=== PATIENT | male | born 1935 | race Caucasian/White ===

== ENCOUNTER 2017-09-23 21:04 | Inpatient (IN) | payer MEDICARE, OTHER ==
[~2017-09-23] VITALS: Ht 188 cm; Wt 64.4 kg
[2017-09-23 21:15] VITALS: BP 137/63
[2017-09-23] MEDS ORDERED: MAGNESIUM HYDROXIDE 30 ML UDC PO PRN (21:30)
[2017-09-23] MEDS ORDERED: MAG HYDROX/AL HYDROX/SIMETH 30 ML UDC PO PRN (21:30)
[2017-09-23] MEDS ORDERED: TEMAZEPAM 7.5 MG CAPSULE ONE (23:10)
[2017-09-23] MEDS: TEMAZEPAM 7.5 MG CAPSULE PO PRN (23:17)
[2017-09-24 00:28] VITALS: BP 137/63
[2017-09-24] MEDS: LORAZEPAM 0.5 MG TABLET PO PRN (01:11)
[2017-09-24] MEDS ORDERED: BUPR100T6 PO (02:18)
[2017-09-24] MEDS ORDERED: PANT40TA4 PO (02:18)
[2017-09-24] MEDS ORDERED: DOCU-141 PO (02:18)
[2017-09-24] MEDS ORDERED: OXYC-128 PO (02:18)
[2017-09-24] MEDS ORDERED: DILT180C PO (02:18)
[2017-09-24] MEDS ORDERED: OXYB5TAB11 PO (02:18)
[2017-09-24] MEDS ORDERED: VIT1CAPS44 PO (02:18)
[2017-09-24] MEDS ORDERED: LISI-603 PO (02:18)
[2017-09-24] MEDS ORDERED: BUPR300T54 PO (02:18)
[2017-09-24] MEDS ORDERED: CALC-20 PO (02:18)
[2017-09-24] MEDS ORDERED: LORA10TA7 PO (02:18)
[2017-09-24] MEDS ORDERED: ATOR40TA PO (02:18)
[2017-09-24] MEDS ORDERED: ASPI-605 PO (02:18)
[2017-09-24] MEDS ORDERED: TAMS-12 PO (02:18)
[2017-09-24] MEDS ORDERED: FERR325T23 PO (02:18)
[2017-09-24] MEDS ORDERED: CHOL10002 PO (02:18)
[2017-09-24] MEDS ORDERED: SERT100T PO (02:18)
[2017-09-24 07:17] LABS: BASOPHILS % (AUTO) 0.7 % (0.0-2.0); EOSINOPHILS % (AUTO) 1.5 % (0.0-6.0); HEMATOCRIT 41 % (39-51); LYMPHOCYTES % (AUTO) 19.3 % (20.0-44.0); MEAN CORPUSCULAR HGB CONC 35 g/dl (31.0-36.0); MEAN CORPUSCULAR VOLUME 98 fL (80-96); MONOCYTES # (AUTO) 0.5 /CMM (0.1-1.30); MONOCYTES % (AUTO) 9.6 % (2.0-12.0); NEUTROPHILS # (AUTO) 3.7 /CMM (1.8-8.9); NEUTROPHILS % (AUTO) 68.9 % (43.0-81.0); PLATELET COUNT (AUTO) 165 /CMM (150-450); RDW COEFFICIENT OF VARIATION 13.9 (11.5-15.0); RED BLOOD CELL COUNT(AUTO) 4.14 MIL/uL (4.5-6.0); WHITE BLOOD COUNT (AUTO) 5.4 K/uL (4.3-11.0)
[2017-09-24 07:22] LABS: CHOLESTEROL 155 mg/dL (<200); HDL CHOLESTEROL 61 mg/dL (40-60); LDL 82 mg/dL (0-99); TRIGLYCERIDES 86 mg/dL (30-150)
[2017-09-24 07:25] LABS: ALANINE AMINOTRANSFERASE 23 U/L (12-78); ALBUMIN 3.3 g/dL (3.4-5.0); ALKALINE PHOSPHATASE 61 U/L (46-116); ASPARTATE AMINOTRANSFERASE 17 U/L (15-37); BILIRUBIN,TOTAL 0.5 mg/dL (0.2-1.0); CARBON DIOXIDE 28 mmol/L (21-32); CHLORIDE 105 mmol/L (98-107); GLUCOSE 95 mg/dL (74-106); SODIUM SERUM 139 mmol/L (136-145); TOTAL PROTEIN, SERUM 6.3 g/dL (6.4-8.2); UREA NITROGEN, BLOOD 21 mg/dL (7-18)
[2017-09-24 08:19] VITALS: BP 125/75
[2017-09-24] MEDS ORDERED: SERTRALINE HCL 50 MG TABLET PO SCH (09:00)
[2017-09-24] MEDS: FERROUS SULFATE (325 MG) 325 MG/TAB TABLET PO SCH (12:59)
[2017-09-24] MEDS: MULTIVITAMIN/LUTEIN/MINERALS 1 TAB PO SCH ×2 (13:00→17:38)
[2017-09-24] MEDS: OLANZAPINE 5 MG/TAB.RAPDIS PO SCH ×3 (13:00→17:39)
[2017-09-24] MEDS: CHOLECALCIFEROL 1,000 UNIT TABLET (VIT D3) PO SCH (13:00)
[2017-09-24] MEDS: DIVALPROEX SODIUM 250 MG TABLET.DR PO SCH ×2 (13:00→21:28)
[2017-09-24] MEDS: DOCUSATE SODIUM 100 MG CAPSULE PO SCH ×2 (13:00→17:38)
[2017-09-24] MEDS: ASPIRIN EC 81 MG TABLET.DR PO SCH (13:00)
[2017-09-24] MEDS: LORATADINE 10 MG TABLET PO SCH (13:00)
[2017-09-24] MEDS: OXYBUTYNIN CHLORIDE 5 MG TABLET PO SCH ×3 (13:00→17:38)
[2017-09-24] MEDS: DILTIAZEM HCL CD 180 MG PO SCH (13:01)
[2017-09-24] MEDS: LISINOPRIL (20MG) 20 MG TABLET PO SCH (13:02)
[2017-09-24] MEDS: oxyCODONE/APAP (5/325 MG) 1 UDTAB TABLET PO SCH ×2 (13:04→17:38)
[2017-09-24] MEDS: PANTOPRAZOLE 40 MG TABLET.DR PO SCH (13:04)
[2017-09-24 16:00] VITALS: BP 139/72
[2017-09-24 20:00] VITALS: BP 108/62
[2017-09-24] MEDS: ATORVASTATIN 40 MG TABLET PO SCH (21:28)
[2017-09-24] MEDS: TAMSULOSIN 0.4 MG CAP.SR.24H PO SCH (21:28)
[2017-09-24] MEDS: TEMAZEPAM 7.5 MG CAPSULE PO PRN (21:29)
[2017-09-25] MEDS: oxyCODONE/APAP (5/325 MG) 1 UDTAB TABLET PO SCH ×4 (00:24→17:29)
[2017-09-25 08:00] VITALS: BP 116/72
[2017-09-25] MEDS: SERTRALINE HCL 50 MG TABLET PO SCH (09:28)
[2017-09-25] MEDS: DOCUSATE SODIUM 100 MG CAPSULE PO SCH ×2 (09:28→16:50)
[2017-09-25] MEDS: MULTIVITAMIN/LUTEIN/MINERALS 1 TAB PO SCH ×2 (09:28→16:50)
[2017-09-25] MEDS: LISINOPRIL (20MG) 20 MG TABLET PO SCH (09:28)
[2017-09-25] MEDS: PANTOPRAZOLE 40 MG TABLET.DR PO SCH (09:28)
[2017-09-25] MEDS: LORATADINE 10 MG TABLET PO SCH (09:28)
[2017-09-25] MEDS: ASPIRIN EC 81 MG TABLET.DR PO SCH (09:28)
[2017-09-25] MEDS: OXYBUTYNIN CHLORIDE 5 MG TABLET PO SCH ×3 (09:28→16:50)
[2017-09-25] MEDS: FERROUS SULFATE (325 MG) 325 MG/TAB TABLET PO SCH (09:29)
[2017-09-25] MEDS: OLANZAPINE 5 MG/TAB.RAPDIS PO SCH ×3 (09:29→16:50)
[2017-09-25] MEDS: DILTIAZEM HCL CD 180 MG PO SCH (09:29)
[2017-09-25] MEDS: DIVALPROEX SODIUM 250 MG TABLET.DR PO SCH ×2 (09:29→20:47)
[2017-09-25] MEDS: CHOLECALCIFEROL 1,000 UNIT TABLET (VIT D3) PO SCH (09:29)
[2017-09-25] MEDS: MUPIROCIN OINT 2% 22 GM TUBE TP SCH ×2 (11:30→23:30)
[2017-09-25 16:00] VITALS: BP 134/84
[2017-09-25 19:59] VITALS: BP 156/68
[2017-09-25] MEDS: ATORVASTATIN 40 MG TABLET PO SCH (21:34)
[2017-09-25] MEDS: TAMSULOSIN 0.4 MG CAP.SR.24H PO SCH (21:35)
[2017-09-25] MEDS: TEMAZEPAM 7.5 MG CAPSULE PO PRN (21:36)
[2017-09-26] MEDS: oxyCODONE/APAP (5/325 MG) 1 UDTAB TABLET PO SCH ×4 (00:59→17:19)
[2017-09-26 08:00] VITALS: BP 97/51
[2017-09-26] MEDS: DILTIAZEM HCL CD 180 MG PO SCH (09:00)
[2017-09-26] MEDS: LISINOPRIL (20MG) 20 MG TABLET PO SCH (09:00)
[2017-09-26] MEDS: ASPIRIN EC 81 MG TABLET.DR PO SCH (09:21)
[2017-09-26] MEDS: SERTRALINE HCL 50 MG TABLET PO SCH (09:21)
[2017-09-26] MEDS: OXYBUTYNIN CHLORIDE 5 MG TABLET PO SCH ×3 (09:21→17:20)
[2017-09-26] MEDS: MULTIVITAMIN/LUTEIN/MINERALS 1 TAB PO SCH ×2 (09:21→17:19)
[2017-09-26] MEDS: PANTOPRAZOLE 40 MG TABLET.DR PO SCH (09:22)
[2017-09-26] MEDS: CHOLECALCIFEROL 1,000 UNIT TABLET (VIT D3) PO SCH (09:22)
[2017-09-26] MEDS: DOCUSATE SODIUM 100 MG CAPSULE PO SCH ×2 (09:22→17:20)
[2017-09-26] MEDS: DIVALPROEX SODIUM 250 MG TABLET.DR PO SCH ×2 (09:22→21:39)
[2017-09-26] MEDS: OLANZAPINE 5 MG/TAB.RAPDIS PO SCH ×3 (09:22→17:20)
[2017-09-26] MEDS: LORATADINE 10 MG TABLET PO SCH (09:22)
[2017-09-26] MEDS: FERROUS SULFATE (325 MG) 325 MG/TAB TABLET PO SCH (09:22)
[2017-09-26] MEDS: MUPIROCIN OINT 2% 22 GM TUBE TP SCH ×3 (11:30→23:30)
[2017-09-26] MEDS: LORAZEPAM 0.5 MG TABLET PO PRN (11:34)
[2017-09-26 16:00] VITALS: BP 142/89
[2017-09-26] MEDS: NEOMY SULF/BACITRAC ZN/POLY 15 GM TUBE TP SCH ×2 (18:30→21:40)
[2017-09-26] MEDS: ACETAMINOPHEN 325 MG TABLET PO PRN (19:49)
[2017-09-26] MEDS: ATORVASTATIN 40 MG TABLET PO SCH (21:38)
[2017-09-26] MEDS: TAMSULOSIN 0.4 MG CAP.SR.24H PO SCH (21:39)
[2017-09-27] MEDS: oxyCODONE/APAP (5/325 MG) 1 UDTAB TABLET PO SCH ×4 (00:15→17:48)
[2017-09-27] MEDS: LISINOPRIL (20MG) 20 MG TABLET PO SCH (09:00)
[2017-09-27] MEDS: OXYBUTYNIN CHLORIDE 5 MG TABLET PO SCH ×3 (09:20→17:48)
[2017-09-27] MEDS: LORATADINE 10 MG TABLET PO SCH (09:20)
[2017-09-27] MEDS: PANTOPRAZOLE 40 MG TABLET.DR PO SCH (09:20)
[2017-09-27] MEDS: FERROUS SULFATE (325 MG) 325 MG/TAB TABLET PO SCH (09:20)
[2017-09-27] MEDS: DILTIAZEM HCL CD 180 MG PO SCH (09:20)
[2017-09-27] MEDS: DOCUSATE SODIUM 100 MG CAPSULE PO SCH ×2 (09:20→17:48)
[2017-09-27] MEDS: DIVALPROEX SODIUM 250 MG TABLET.DR PO SCH ×2 (09:20→20:44)
[2017-09-27] MEDS: CHOLECALCIFEROL 1,000 UNIT TABLET (VIT D3) PO SCH (09:20)
[2017-09-27] MEDS: MULTIVITAMIN/LUTEIN/MINERALS 1 TAB PO SCH ×2 (09:20→17:48)
[2017-09-27] MEDS: ASPIRIN EC 81 MG TABLET.DR PO SCH (09:21)
[2017-09-27] MEDS: SERTRALINE HCL 50 MG TABLET PO SCH (09:21)
[2017-09-27] MEDS: OLANZAPINE 5 MG/TAB.RAPDIS PO SCH ×3 (09:21→17:48)
[2017-09-27] MEDS: NEOMY SULF/BACITRAC ZN/POLY 15 GM TUBE TP SCH (09:28)
[2017-09-27] MEDS: MUPIROCIN OINT 2% 22 GM TUBE TP SCH ×2 (11:30→23:35)
[2017-09-27 15:49] VITALS: BP 100/59
[2017-09-27 19:53] VITALS: BP 108/61
[2017-09-27] MEDS: LORAZEPAM 0.5 MG TABLET PO PRN (20:00)
[2017-09-27] MEDS: ATORVASTATIN 40 MG TABLET PO SCH (21:29)
[2017-09-27] MEDS: TAMSULOSIN 0.4 MG CAP.SR.24H PO SCH (21:30)
[2017-09-27] MEDS: TEMAZEPAM 7.5 MG CAPSULE PO PRN (21:54)
[2017-09-28] MEDS: oxyCODONE/APAP (5/325 MG) 1 UDTAB TABLET PO SCH ×4 (01:02→17:50)
[2017-09-28 08:00] VITALS: BP 116/76
[2017-09-28] MEDS: LISINOPRIL (20MG) 20 MG TABLET PO SCH (09:00)
[2017-09-28] MEDS: DILTIAZEM HCL CD 180 MG PO SCH (09:00)
[2017-09-28] MEDS: SERTRALINE HCL 50 MG TABLET PO SCH (10:25)
[2017-09-28] MEDS: DIVALPROEX SODIUM 250 MG TABLET.DR PO SCH ×3 (10:26→21:57)
[2017-09-28] MEDS: LORATADINE 10 MG TABLET PO SCH (10:26)
[2017-09-28] MEDS: DOCUSATE SODIUM 100 MG CAPSULE PO SCH ×2 (10:26→17:00)
[2017-09-28] MEDS: FERROUS SULFATE (325 MG) 325 MG/TAB TABLET PO SCH (10:26)
[2017-09-28] MEDS: CHOLECALCIFEROL 1,000 UNIT TABLET (VIT D3) PO SCH (10:26)
[2017-09-28] MEDS: MULTIVITAMIN/LUTEIN/MINERALS 1 TAB PO SCH ×2 (10:26→17:00)
[2017-09-28] MEDS: PANTOPRAZOLE 40 MG TABLET.DR PO SCH (10:26)
[2017-09-28] MEDS: OLANZAPINE 5 MG/TAB.RAPDIS PO SCH ×3 (10:27→17:00)
[2017-09-28] MEDS: ASPIRIN EC 81 MG TABLET.DR PO SCH (10:27)
[2017-09-28] MEDS: OXYBUTYNIN CHLORIDE 5 MG TABLET PO SCH ×3 (10:27→17:00)
[2017-09-28] MEDS: NEOMY SULF/BACITRAC ZN/POLY 15 GM TUBE TP SCH (10:28)
[2017-09-28] MEDS: MUPIROCIN OINT 2% 22 GM TUBE TP SCH ×2 (10:29→23:32)
[2017-09-28 16:00] VITALS: BP 120/76
[2017-09-28 20:03] VITALS: BP 115/71
[2017-09-28] MEDS: TAMSULOSIN 0.4 MG CAP.SR.24H PO SCH (21:58)
[2017-09-28] MEDS: ATORVASTATIN 40 MG TABLET PO SCH (21:58)
[2017-09-29 08:04] VITALS: BP 132/71
[2017-09-29] MEDS: DIVALPROEX SODIUM 250 MG TABLET.DR PO SCH ×3 (08:57→21:23)
[2017-09-29] MEDS: MULTIVITAMIN/LUTEIN/MINERALS 1 TAB PO SCH ×2 (08:57→16:54)
[2017-09-29] MEDS: FERROUS SULFATE (325 MG) 325 MG/TAB TABLET PO SCH (08:57)
[2017-09-29] MEDS: OXYBUTYNIN CHLORIDE 5 MG TABLET PO SCH ×3 (08:57→16:54)
[2017-09-29] MEDS: PANTOPRAZOLE 40 MG TABLET.DR PO SCH (08:57)
[2017-09-29] MEDS: SERTRALINE HCL 50 MG TABLET PO SCH (08:58)
[2017-09-29] MEDS: DOCUSATE SODIUM 100 MG CAPSULE PO SCH ×2 (08:58→16:54)
[2017-09-29] MEDS: DILTIAZEM HCL CD 180 MG PO SCH (08:58)
[2017-09-29] MEDS: OLANZAPINE 5 MG/TAB.RAPDIS PO SCH ×3 (08:58→16:54)
[2017-09-29] MEDS: LORATADINE 10 MG TABLET PO SCH (08:58)
[2017-09-29] MEDS: CHOLECALCIFEROL 1,000 UNIT TABLET (VIT D3) PO SCH (08:58)
[2017-09-29] MEDS: LISINOPRIL (20MG) 20 MG TABLET PO SCH (08:59)
[2017-09-29] MEDS: NEOMY SULF/BACITRAC ZN/POLY 15 GM TUBE TP SCH (09:00)
[2017-09-29] MEDS: ASPIRIN EC 81 MG TABLET.DR PO SCH (09:05)
[2017-09-29] MEDS: MUPIROCIN OINT 2% 22 GM TUBE TP SCH ×2 (12:28→23:36)
[2017-09-29] MEDS: ACETAMINOPHEN 325 MG TABLET PO PRN (14:44)
[2017-09-29 15:49] VITALS: BP 131/59
[2017-09-29 20:00] VITALS: BP 129/54
[2017-09-29] MEDS: TAMSULOSIN 0.4 MG CAP.SR.24H PO SCH (21:22)
[2017-09-29] MEDS: ATORVASTATIN 40 MG TABLET PO SCH (21:22)
[2017-09-29] MEDS: TEMAZEPAM 7.5 MG CAPSULE PO PRN (23:38)
[2017-09-30] MEDS: LORAZEPAM 0.5 MG TABLET PO PRN (02:33)
[2017-09-30] MEDS: oxyCODONE/APAP (5/325 MG) 1 UDTAB TABLET PO PRN ×2 (03:18→13:11)
[2017-09-30 08:00] VITALS: BP 103/54
[2017-09-30] MEDS: OXYBUTYNIN CHLORIDE 5 MG TABLET PO SCH ×3 (08:34→16:53)
[2017-09-30] MEDS: SERTRALINE HCL 50 MG TABLET PO SCH (08:34)
[2017-09-30] MEDS: OLANZAPINE 5 MG/TAB.RAPDIS PO SCH ×3 (08:35→16:53)
[2017-09-30] MEDS: FERROUS SULFATE (325 MG) 325 MG/TAB TABLET PO SCH (08:35)
[2017-09-30] MEDS: DIVALPROEX SODIUM 250 MG TABLET.DR PO SCH ×3 (08:35→21:23)
[2017-09-30] MEDS: LORATADINE 10 MG TABLET PO SCH (08:35)
[2017-09-30] MEDS: MULTIVITAMIN/LUTEIN/MINERALS 1 TAB PO SCH ×2 (08:35→16:53)
[2017-09-30] MEDS: ASPIRIN EC 81 MG TABLET.DR PO SCH (08:35)
[2017-09-30] MEDS: DOCUSATE SODIUM 100 MG CAPSULE PO SCH ×2 (08:35→16:53)
[2017-09-30] MEDS: CHOLECALCIFEROL 1,000 UNIT TABLET (VIT D3) PO SCH (08:35)
[2017-09-30] MEDS: DILTIAZEM HCL CD 180 MG PO SCH (08:35)
[2017-09-30] MEDS: PANTOPRAZOLE 40 MG TABLET.DR PO SCH (08:35)
[2017-09-30] MEDS: LISINOPRIL (20MG) 20 MG TABLET PO SCH (08:36)
[2017-09-30] MEDS: NEOMY SULF/BACITRAC ZN/POLY 15 GM TUBE TP SCH (08:42)
[2017-09-30] MEDS: MUPIROCIN OINT 2% 22 GM TUBE TP SCH (13:09)
[2017-09-30 16:49] VITALS: BP 113/62
[2017-09-30 20:00] VITALS: BP 123/69
[2017-09-30] MEDS: ATORVASTATIN 40 MG TABLET PO SCH (21:23)
[2017-09-30] MEDS: TAMSULOSIN 0.4 MG CAP.SR.24H PO SCH (21:24)
[2017-09-30] MEDS: TEMAZEPAM 7.5 MG CAPSULE PO PRN (21:26)
[2017-10-01] MEDS: MUPIROCIN OINT 2% 22 GM TUBE TP SCH ×3 (00:02→23:36)
[2017-10-01 07:59] VITALS: BP 136/89
[2017-10-01] MEDS: FERROUS SULFATE (325 MG) 325 MG/TAB TABLET PO SCH (08:48)
[2017-10-01] MEDS: OLANZAPINE 5 MG/TAB.RAPDIS PO SCH ×3 (08:49→16:23)
[2017-10-01] MEDS: CHOLECALCIFEROL 1,000 UNIT TABLET (VIT D3) PO SCH (08:49)
[2017-10-01] MEDS: LISINOPRIL (20MG) 20 MG TABLET PO SCH (08:49)
[2017-10-01] MEDS: DOCUSATE SODIUM 100 MG CAPSULE PO SCH ×2 (08:50→16:23)
[2017-10-01] MEDS: DIVALPROEX SODIUM 250 MG TABLET.DR PO SCH ×3 (08:50→21:44)
[2017-10-01] MEDS: LORATADINE 10 MG TABLET PO SCH (08:50)
[2017-10-01] MEDS: DILTIAZEM HCL CD 180 MG PO SCH (08:50)
[2017-10-01] MEDS: ASPIRIN EC 81 MG TABLET.DR PO SCH (08:50)
[2017-10-01] MEDS: OXYBUTYNIN CHLORIDE 5 MG TABLET PO SCH ×3 (08:50→16:26)
[2017-10-01] MEDS: NEOMY SULF/BACITRAC ZN/POLY 15 GM TUBE TP SCH (08:51)
[2017-10-01] MEDS: MULTIVITAMIN/LUTEIN/MINERALS 1 TAB PO SCH ×2 (08:53→16:23)
[2017-10-01] MEDS: SERTRALINE HCL 50 MG TABLET PO SCH (08:53)
[2017-10-01] MEDS: PANTOPRAZOLE 40 MG TABLET.DR PO SCH (08:53)
[2017-10-01 16:15] VITALS: BP 134/88
[2017-10-01 20:00] VITALS: BP 105/64
[2017-10-01] MEDS: TAMSULOSIN 0.4 MG CAP.SR.24H PO SCH (21:44)
[2017-10-01] MEDS: ATORVASTATIN 40 MG TABLET PO SCH (21:44)
[2017-10-01] MEDS: TEMAZEPAM 7.5 MG CAPSULE PO PRN (21:45)
[2017-10-01] MEDS: oxyCODONE/APAP (5/325 MG) 1 UDTAB TABLET PO PRN (23:36)
[2017-10-02 08:00] VITALS: BP 149/82
[2017-10-02] MEDS: LISINOPRIL (20MG) 20 MG TABLET PO SCH (08:18)
[2017-10-02] MEDS: DIVALPROEX SODIUM 250 MG TABLET.DR PO SCH ×3 (08:18→21:47)
[2017-10-02] MEDS: MULTIVITAMIN/LUTEIN/MINERALS 1 TAB PO SCH ×2 (08:18→16:00)
[2017-10-02] MEDS: ASPIRIN EC 81 MG TABLET.DR PO SCH (08:18)
[2017-10-02] MEDS: SERTRALINE HCL 50 MG TABLET PO SCH (08:19)
[2017-10-02] MEDS: DOCUSATE SODIUM 100 MG CAPSULE PO SCH ×2 (08:19→16:01)
[2017-10-02] MEDS: OXYBUTYNIN CHLORIDE 5 MG TABLET PO SCH ×3 (08:19→16:00)
[2017-10-02] MEDS: LORATADINE 10 MG TABLET PO SCH (08:19)
[2017-10-02] MEDS: CHOLECALCIFEROL 1,000 UNIT TABLET (VIT D3) PO SCH (08:19)
[2017-10-02] MEDS: DILTIAZEM HCL CD 180 MG PO SCH (08:19)
[2017-10-02] MEDS: OLANZAPINE 5 MG/TAB.RAPDIS PO SCH ×3 (08:19→16:00)
[2017-10-02] MEDS: FERROUS SULFATE (325 MG) 325 MG/TAB TABLET PO SCH (08:20)
[2017-10-02] MEDS: PANTOPRAZOLE 40 MG TABLET.DR PO SCH (08:20)
[2017-10-02] MEDS: NEOMY SULF/BACITRAC ZN/POLY 15 GM TUBE TP SCH (08:23)
[2017-10-02] MEDS: oxyCODONE/APAP (5/325 MG) 1 UDTAB TABLET PO PRN (10:48)
[2017-10-02] MEDS: MUPIROCIN OINT 2% 22 GM TUBE TP SCH ×2 (12:02→23:30)
[2017-10-02] MEDS: LORAZEPAM 0.5 MG TABLET PO PRN (16:00)
[2017-10-02 16:37] VITALS: BP 133/97
[2017-10-02 20:08] VITALS: BP 135/75
[2017-10-02] MEDS: TAMSULOSIN 0.4 MG CAP.SR.24H PO SCH (21:26)
[2017-10-02] MEDS: ATORVASTATIN 40 MG TABLET PO SCH (21:26)
[2017-10-02] MEDS: TEMAZEPAM 7.5 MG CAPSULE PO PRN (22:32)
[2017-10-03 08:00] VITALS: BP 125/79
[2017-10-03] MEDS: OLANZAPINE 5 MG/TAB.RAPDIS PO SCH ×3 (08:21→16:28)
[2017-10-03] MEDS: LORATADINE 10 MG TABLET PO SCH (08:21)
[2017-10-03] MEDS: DILTIAZEM HCL CD 180 MG PO SCH (08:21)
[2017-10-03] MEDS: ASPIRIN EC 81 MG TABLET.DR PO SCH (08:21)
[2017-10-03] MEDS: DIVALPROEX SODIUM 250 MG TABLET.DR PO SCH ×3 (08:21→21:29)
[2017-10-03] MEDS: PANTOPRAZOLE 40 MG TABLET.DR PO SCH (08:22)
[2017-10-03] MEDS: OXYBUTYNIN CHLORIDE 5 MG TABLET PO SCH ×3 (08:22→16:28)
[2017-10-03] MEDS: DOCUSATE SODIUM 100 MG CAPSULE PO SCH ×2 (08:22→17:00)
[2017-10-03] MEDS: FERROUS SULFATE (325 MG) 325 MG/TAB TABLET PO SCH (08:22)
[2017-10-03] MEDS: LISINOPRIL (20MG) 20 MG TABLET PO SCH (08:22)
[2017-10-03] MEDS: MULTIVITAMIN/LUTEIN/MINERALS 1 TAB PO SCH ×2 (08:50→16:28)
[2017-10-03] MEDS: SERTRALINE HCL 50 MG TABLET PO SCH (08:50)
[2017-10-03] MEDS: NEOMY SULF/BACITRAC ZN/POLY 15 GM TUBE TP SCH (09:24)
[2017-10-03] MEDS: CHOLECALCIFEROL 1,000 UNIT TABLET (VIT D3) PO SCH (09:25)
[2017-10-03] MEDS: MUPIROCIN OINT 2% 22 GM TUBE TP SCH (12:55)
[2017-10-03 16:00] VITALS: BP 131/71
[2017-10-03 19:44] VITALS: BP 103/65
[2017-10-03] MEDS: ATORVASTATIN 40 MG TABLET PO SCH (21:29)
[2017-10-03] MEDS: TAMSULOSIN 0.4 MG CAP.SR.24H PO SCH (21:30)
[2017-10-03] MEDS: TEMAZEPAM 7.5 MG CAPSULE PO PRN (21:30)
[2017-10-03] MEDS: oxyCODONE/APAP (5/325 MG) 1 UDTAB TABLET PO PRN (22:43)
[2017-10-04] MEDS: ACETAMINOPHEN 325 MG TABLET PO PRN (02:21)
[2017-10-04] MEDS: LORAZEPAM 0.5 MG TABLET PO PRN (02:21)
[2017-10-04 08:00] VITALS: BP 129/74
[2017-10-04] MEDS: MULTIVITAMIN/LUTEIN/MINERALS 1 TAB PO SCH ×2 (09:13→17:11)
[2017-10-04] MEDS: DOCUSATE SODIUM 100 MG CAPSULE PO SCH ×2 (09:14→17:10)
[2017-10-04] MEDS: SERTRALINE HCL 50 MG TABLET PO SCH (09:14)
[2017-10-04] MEDS: OLANZAPINE 5 MG/TAB.RAPDIS PO SCH ×3 (09:14→17:10)
[2017-10-04] MEDS: DIVALPROEX SODIUM 250 MG TABLET.DR PO SCH ×3 (09:15→21:09)
[2017-10-04] MEDS: ASPIRIN EC 81 MG TABLET.DR PO SCH (09:15)
[2017-10-04] MEDS: CHOLECALCIFEROL 1,000 UNIT TABLET (VIT D3) PO SCH (09:15)
[2017-10-04] MEDS: LORATADINE 10 MG TABLET PO SCH (09:15)
[2017-10-04] MEDS: FERROUS SULFATE (325 MG) 325 MG/TAB TABLET PO SCH (09:16)
[2017-10-04] MEDS: PANTOPRAZOLE 40 MG TABLET.DR PO SCH (09:16)
[2017-10-04] MEDS: OXYBUTYNIN CHLORIDE 5 MG TABLET PO SCH ×3 (09:16→17:11)
[2017-10-04] MEDS: LISINOPRIL (20MG) 20 MG TABLET PO SCH (09:16)
[2017-10-04] MEDS: DILTIAZEM HCL CD 180 MG PO SCH (09:16)
[2017-10-04] MEDS: NEOMY SULF/BACITRAC ZN/POLY 15 GM TUBE TP SCH (09:17)
[2017-10-04] MEDS: oxyCODONE/APAP (5/325 MG) 1 UDTAB TABLET PO PRN (12:00)
[2017-10-04 16:00] VITALS: BP 132/75
[2017-10-04 20:20] VITALS: BP 114/74
[2017-10-04] MEDS: ATORVASTATIN 40 MG TABLET PO SCH (21:09)
[2017-10-04] MEDS: TAMSULOSIN 0.4 MG CAP.SR.24H PO SCH (21:10)
[2017-10-04] MEDS: TEMAZEPAM 7.5 MG CAPSULE PO PRN (22:16)
[2017-10-05] MEDS: oxyCODONE/APAP (5/325 MG) 1 UDTAB TABLET PO PRN (00:44)
[2017-10-05 08:00] VITALS: BP 113/68
[2017-10-05] MEDS: MULTIVITAMIN/LUTEIN/MINERALS 1 TAB PO SCH (08:46)
[2017-10-05] MEDS: ASPIRIN EC 81 MG TABLET.DR PO SCH (08:46)
[2017-10-05] MEDS: OXYBUTYNIN CHLORIDE 5 MG TABLET PO SCH ×2 (08:46→13:17)
[2017-10-05] MEDS: DIVALPROEX SODIUM 250 MG TABLET.DR PO SCH (08:46)
[2017-10-05] MEDS: OLANZAPINE 5 MG/TAB.RAPDIS PO SCH ×2 (08:46→13:17)
[2017-10-05] MEDS: SERTRALINE HCL 50 MG TABLET PO SCH (08:46)
[2017-10-05] MEDS: FERROUS SULFATE (325 MG) 325 MG/TAB TABLET PO SCH (08:46)
[2017-10-05] MEDS: CHOLECALCIFEROL 1,000 UNIT TABLET (VIT D3) PO SCH (08:46)
[2017-10-05 08:47] VITALS: BP 113/88
[2017-10-05] MEDS: DOCUSATE SODIUM 100 MG CAPSULE PO SCH (08:47)
[2017-10-05] MEDS: LISINOPRIL (20MG) 20 MG TABLET PO SCH (08:47)
[2017-10-05] MEDS: DILTIAZEM HCL CD 180 MG PO SCH (08:47)
[2017-10-05] MEDS: PANTOPRAZOLE 40 MG TABLET.DR PO SCH (08:47)
[2017-10-05] MEDS: LORATADINE 10 MG TABLET PO SCH (08:47)
[2017-10-05] MEDS: NEOMY SULF/BACITRAC ZN/POLY 15 GM TUBE TP SCH (09:00)
== END 2017-10-05 13:40 | DRG 885 ==
LOC: GPS 21:04 → GPSOV2 09-26 06:46 → GPS 09-27 11:15
PROVIDERS: ADMIT Psychiatry & Neurology Psychiatry; ATTEND Psychiatry & Neurology Psychiatry
DX: F39 Unspecified mood [affective] disorder (principal); F03.91 Unspecified dementia, unspecified severity, with behavioral disturbance; E44.1 Mild protein-calorie malnutrition; I48.2 Chronic atrial fibrillation; F29 Unspecified psychosis not due to a substance or known physiological condition; E78.5 Hyperlipidemia, unspecified; I10 Essential (primary) hypertension; F32.9 Major depressive disorder, single episode, unspecified; Z79.82 Long term (current) use of aspirin; Z79.899 Other long term (current) drug therapy; N40.0 Benign prostatic hyperplasia without lower urinary tract symptoms; S40.022A Contusion of left upper arm, initial encounter; S40.021A Contusion of right upper arm, initial encounter; X58.XXXA Exposure to other specified factors, initial encounter; Y92.129 Unspecified place in nursing home as the place of occurrence of the external cause; S61.411A Laceration without foreign body of right hand, initial encounter; S41.111A Laceration without foreign body of right upper arm, initial encounter; S00.83XA Contusion of other part of head, initial encounter; Z73.6 Limitation of activities due to disability; F10.21 Alcohol dependence, in remission; G89.29 Other chronic pain
CPT/HCPCS: 36415; 80053-TC; 80061-TC; 80164-TC; 85025-TC; 87081-TC; A6402; A6403; Z7610

== ENCOUNTER 2017-10-10 17:38 | Inpatient (IN) | payer MEDICARE, OTHER ==
[~2017-10-10] VITALS: Ht 177.8 cm; Wt 66.2 kg
[~2017-10-10 17:38] MED LIST: ASPI-605 PO; ATOR40TA PO; BUPR300T54 PO; CHOL10002 PO; DILT180C PO; DOCU-141 PO; FERR325T23 PO; LISI-603 PO; LORA10TA7 PO; OXYB5TAB11 PO; OXYC-128 PO; PANT40TA4 PO; SERT100T PO; TAMS-12 PO; VIT1CAPS44 PO
--- NOTE | 2017-10-10 17:55 | NUR ---
PT BIB PA FROM SNF WITH A C/O INCREASING AGGITATION. PT APPEARS CALM AND COOPERATIVE. PT IS AMBULATORY WITH A STEADY GAIT. PT C/O FEELING COLD. PT REC'D 2 WARM BLANKETS.
[2017-10-10 18:10] LABS: BASOPHILS % (AUTO) 0.6 % (0.0-2.0); EOSINOPHILS % (AUTO) 0.6 % (0.0-6.0); HEMATOCRIT 40 % (39-51); HEMOGLOBIN 13.9 g/dL (13.5-17.5); LYMPHOCYTES # (AUTO) 1.2 /CMM (0.8-4.8); LYMPHOCYTES % (AUTO) 17.9 % (20.0-44.0); MEAN CORPUSCULAR HGB CONC 35 g/dl (31.0-36.0); MEAN CORPUSCULAR VOLUME 97 fL (80-96); MONOCYTES # (AUTO) 0.7 /CMM (0.1-1.30); MONOCYTES % (AUTO) 9.8 % (2.0-12.0); NEUTROPHILS # (AUTO) 4.9 /CMM (1.8-8.9); NEUTROPHILS % (AUTO) 71.1 % (43.0-81.0); PLATELET COUNT (AUTO) 224 /CMM (150-450); RDW COEFFICIENT OF VARIATION 12.6 (11.5-15.0); RED BLOOD CELL COUNT(AUTO) 4.13 MIL/uL (4.5-6.0); WHITE BLOOD COUNT (AUTO) 6.8 K/uL (4.3-11.0)
[2017-10-10 18:21] LABS: CALCIUM, SERUM 8.6 mg/dL (8.5-10.1); CARBON DIOXIDE 27 mmol/L (21-32); CHLORIDE 102 mmol/L (98-107); CREATININE 1.1 mg/dL (0.6-1.3); GLUCOSE 95 mg/dL (74-106); POTASSIUM 4.4 mmol/L (3.5-5.1); SODIUM SERUM 137 mmol/L (136-145); UREA NITROGEN, BLOOD 26 mg/dL (7-18)
[2017-10-10 18:23] LABS: INR 1.02 (0.85-1.15)
[2017-10-10 18:25] LABS: SALICYLATE 1.8 mg/dL (2.8-20.0)
[2017-10-10 18:27] LABS: ALANINE AMINOTRANSFERASE 19 U/L (12-78); ALBUMIN 3.4 g/dL (3.4-5.0); ALKALINE PHOSPHATASE 104 U/L (46-116); ASPARTATE AMINOTRANSFERASE 16 U/L (15-37); BILIRUBIN,DIRECT 0.1 mg/dL (0.0-0.2); BILIRUBIN,TOTAL 0.3 mg/dL (0.2-1.0); TOTAL PROTEIN, SERUM 6.7 g/dL (6.4-8.2)
[2017-10-10] MEDS ORDERED: TEMA7.5C12 PO (18:38)
[2017-10-10] MEDS ORDERED: MAG30ORA PO (18:38)
[2017-10-10] MEDS ORDERED: IBUP-2269 PO (18:38)
[2017-10-10] MEDS ORDERED: LORA0.5T PO (18:38)
[2017-10-10] MEDS ORDERED: MELA3TAB PO (18:38)
[2017-10-10] MEDS ORDERED: OLAN5TAB6 PO (18:38)
[2017-10-10] MEDS ORDERED: SERT25TA5 PO (18:38)
[2017-10-10] MEDS ORDERED: DIVA250T PO (18:38)
--- NOTE | 2017-10-10 18:50 | NUR ---
PT REC'D AN EGG SANDWICH, JELLO AND JUICE. PT IS TOLERATING PO WELL.
--- NOTE | 2017-10-10 19:00 | NUR ---
TOVA MOHAMUD, IS AT THE BEDSIDE.
--- NOTE | 2017-10-10 19:34 | NUR ---
PT WALKED TO THE ER BAY DOORS AND WAS REDIRECTED BACK TO BED #5. PT IS NOW ON A HOLD. DR. WALTERS IS ACCEPTING MD. (PSYCH). PT WAS MOVED TO BED #16 TO BE CLOSER TO THE NURSES' STATION. PT IS WATCHING TV.
--- NOTE | 2017-10-10 19:40 | NUR ---
PT IS ASSIGNED TO GPS #: [id number], PT IS DIAGNOSED WITH PSYCHOSIS NOS, AND DR WALTERS IS THE ACCEPTING PSYCHIATRIST.
[2017-10-10 19:45] LABS: TROPONIN I < 0.017 ng/mL (0.00-0.056)
--- NOTE | 2017-10-10 19:55 | NUR ---
REPORT GIVEN TO VIKTOR KHAN. PT TO GO TO [facility] AT 2005
[2017-10-10 20:28] VITALS: BP 154/98
--- NOTE | 2017-10-10 20:48 | NUR ---
ADMITTED A 82 Y/O Y/O MALE FROM [facility], ON 5150 HOLD GD AND DTO, PER HOLD, PATIENT IS INCREASED AGITATION AND CONFUSION. PATIENT ADMITTING DIAGNOSIS IS PSYCHOSIS AND MEDICAL HX. OF DEMENTIA, HTN, AFIB, BPH AND CHRONIC LOWER BACK PAIN. UPON FACE TO FACE EVALUATION, PATIENT APPEARED ALERT AND ORIENTED X 1, CONFUSED, CALM, COOPERATIVE, DISORGANIZED, UNKEMPT, WANDERS, REDIRECTABLE. PATIENT REFUSED TO SIGN PAPER WORKS, PATIENT HAS NO SOB, NO ACUTE DISTRESS, BREATHING EVEN AND UNLABORED, NO S/S OF PAIN AND DISCOMFORT, DENIES SI/HI, ABLE TO WALK WITH STEADY GAIT, PATIENT ATE SNACKS. HEAD TO TOE ASSESSMENT DONE, PICTURE DONE, WOUND CONSULT TRIGGERED, BELONGINGS INSPECTED FOR CONTRABAND CHECKING AND PLACED TO LOCKED CABINET. PATIENT IS UNDER THE CARE OF DR. WALTERS. NOTIFIED DR. NANCE TO RECONCILE MEDICATION OF THE ADMISSION AND NOTIFIED SPOUSE OF THE ADMISSION. KEPT CLEAN, DRY AND COMFORTABLE, WILL CONTINUE TO MONITOR [id number] FOR SAFETY.
[2017-10-10 21:42] VITALS: BP 154/98
[2017-10-10] MEDS ORDERED: ACETAMINOPHEN 325 MG TABLET PO PRN (22:00)
[2017-10-10] MEDS ORDERED: MAG HYDROX/AL HYDROX/SIMETH 30 ML UDC PO PRN ×2 (22:00→22:30)
[2017-10-10] MEDS ORDERED: MAGNESIUM HYDROXIDE 30 ML UDC PO PRN (22:00)
[2017-10-10] MEDS ORDERED: LORAZEPAM 0.5 MG TABLET PO PRN (22:00)
[2017-10-10] MEDS: DILTIAZEM HCL CD 180 MG PO SCH (23:26)
[2017-10-10] MEDS: LISINOPRIL (20MG) 20 MG TABLET PO SCH (23:26)
[2017-10-11 08:19] VITALS: BP 118/85
[2017-10-11] MEDS: LISINOPRIL (20MG) 20 MG TABLET PO SCH (08:58)
[2017-10-11] MEDS: CHOLECALCIFEROL 1,000 UNIT TABLET (VIT D3) PO SCH (08:59)
[2017-10-11] MEDS: DILTIAZEM HCL CD 180 MG PO SCH (08:59)
[2017-10-11] MEDS: ASPIRIN EC 81 MG TABLET.DR PO SCH (08:59)
[2017-10-11] MEDS: DOCUSATE SODIUM 100 MG CAPSULE PO SCH ×2 (08:59→16:46)
[2017-10-11] MEDS: FERROUS SULFATE (325 MG) 325 MG/TAB TABLET PO SCH (08:59)
[2017-10-11] MEDS: DIVALPROEX SODIUM 250 MG TABLET.DR PO SCH ×4 (08:59→21:17)
[2017-10-11] MEDS: OXYBUTYNIN CHLORIDE 5 MG TABLET PO SCH ×3 (09:00→16:46)
[2017-10-11] MEDS: LORATADINE 10 MG TABLET PO SCH (09:00)
[2017-10-11] MEDS: PANTOPRAZOLE 40 MG TABLET.DR PO SCH (09:00)
--- NOTE | 2017-10-11 09:34 | NUR ---
INITIAL DISCHARGE NOTE: Pt will return to [facility] Address: [address], [place] [address] . SW will help form a safe and proper discharge in collaboration with .
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
--- NOTE | 2017-10-11 13:37 | NUR ---
PT RETURNING TO UNIT WITHIN 30 DAYS OF INITIAL DISCHARGE: SW has reviewed this patients psychosocial dated 09/26/17 and can attest to the accuracy of the information therein. There have been no changes since his last assessment. Pt. still appears confused, disorganized, and agitated. Pts judgement and insight are poor. Pt denies suicidal/homicidal ideations and denies visual/auditory hallucinations. Pt does not appear to be responding to internal stimuli. Pt was agitated and stated he did not want to return to [facility] Address: [address], [place] [address] .
[2017-10-11] MEDS: BACITRACIN/POLYMYXIN B 15 GM TUBE TP SCH (13:47)
--- NOTE | 2017-10-11 13:55 | NUR ---
SW contacted Pts Bess [phone] to discuss pts current psychiatric hospitalization. Pts stated that she would like pt to return to [facility] Address: [address], [place] [address]
[2017-10-11 16:00] VITALS: BP 110/60
[2017-10-11] MEDS: OLANZAPINE 2.5 MG TABLET PO SCH ×2 (16:46→21:17)
[2017-10-11 17:41] LABS: CHOLESTEROL 161 mg/dL (<200); HDL CHOLESTEROL 50 mg/dL (40-60); LDL 93 mg/dL (0-99); TRIGLYCERIDES 133 mg/dL (30-150)
[2017-10-11 20:12] VITALS: BP 137/72
[2017-10-11] MEDS: TAMSULOSIN 0.4 MG CAP.SR.24H PO SCH (21:17)
[2017-10-11] MEDS: ATORVASTATIN 40 MG TABLET PO SCH (21:17)
--- NOTE | 2017-10-11 21:30 | NUR ---
GPS RN NOTES: PATIENT'S MEDICATION DEPAKOTE 250 MG PO ADMINISTERED AT 2116 UNDONE ON THE EMAR AND ADMINISTERED UNDER THE NEW ORDER DONE BY DR. WALTERS. SAID SITUATION IS BASED ON THE REASON THAT DEPAKOTE [address] WALTRES FOR MOOD AND BEHAVIOR. AND THAT THE PREVIOUS ORDER WAS DONE BY DR. LEE ANN SCHULTE. THIS WHOLE CHANGED BEING CONFERRED WITH THE HEEL PADDER-ASHANTI.
[2017-10-12 08:00] VITALS: BP 101/66
[2017-10-12] MEDS: OXYBUTYNIN CHLORIDE 5 MG TABLET PO SCH ×3 (08:42→17:05)
[2017-10-12] MEDS: DOCUSATE SODIUM 100 MG CAPSULE PO SCH ×2 (08:44→17:07)
[2017-10-12] MEDS: PANTOPRAZOLE 40 MG TABLET.DR PO SCH (08:44)
[2017-10-12] MEDS: DIVALPROEX SODIUM 250 MG TABLET.DR PO SCH ×3 (08:44→21:37)
[2017-10-12] MEDS: CHOLECALCIFEROL 1,000 UNIT TABLET (VIT D3) PO SCH (08:45)
[2017-10-12] MEDS: FERROUS SULFATE (325 MG) 325 MG/TAB TABLET PO SCH (08:45)
[2017-10-12] MEDS: LORATADINE 10 MG TABLET PO SCH (08:45)
[2017-10-12] MEDS: OLANZAPINE 2.5 MG TABLET PO SCH ×3 (08:45→21:46)
[2017-10-12] MEDS: ASPIRIN EC 81 MG TABLET.DR PO SCH (08:45)
[2017-10-12] MEDS: BACITRACIN/POLYMYXIN B 15 GM TUBE TP SCH (09:04)
[2017-10-12] MEDS: SERTRALINE HCL 25 MG TABLET PO SCH (09:10)
[2017-10-12] MEDS: DILTIAZEM HCL CD 180 MG PO SCH (11:54)
[2017-10-12] MEDS: LISINOPRIL (20MG) 20 MG TABLET PO SCH (14:43)
[2017-10-12 16:00] VITALS: BP 108/70
[2017-10-12 20:22] VITALS: BP 114/59
[2017-10-12] MEDS: TEMAZEPAM 7.5 MG CAPSULE PO PRN (21:37)
[2017-10-12] MEDS: TAMSULOSIN 0.4 MG CAP.SR.24H PO SCH (21:46)
[2017-10-12] MEDS: ATORVASTATIN 40 MG TABLET PO SCH (22:04)
[2017-10-13 08:00] VITALS: BP 132/70
[2017-10-13] MEDS: LISINOPRIL (20MG) 20 MG TABLET PO SCH (09:06)
[2017-10-13] MEDS: DOCUSATE SODIUM 100 MG CAPSULE PO SCH ×2 (09:06→16:43)
[2017-10-13] MEDS: DIVALPROEX SODIUM 250 MG TABLET.DR PO SCH ×3 (09:07→20:11)
[2017-10-13] MEDS: OLANZAPINE 2.5 MG TABLET PO SCH ×3 (09:07→21:22)
[2017-10-13] MEDS: SERTRALINE HCL 25 MG TABLET PO SCH (09:08)
[2017-10-13] MEDS: CHOLECALCIFEROL 1,000 UNIT TABLET (VIT D3) PO SCH (09:08)
[2017-10-13] MEDS: LORATADINE 10 MG TABLET PO SCH (09:08)
[2017-10-13] MEDS: FERROUS SULFATE (325 MG) 325 MG/TAB TABLET PO SCH (09:08)
[2017-10-13] MEDS: DILTIAZEM HCL CD 180 MG PO SCH (09:08)
[2017-10-13] MEDS: ASPIRIN EC 81 MG TABLET.DR PO SCH (09:09)
[2017-10-13] MEDS: OXYBUTYNIN CHLORIDE 5 MG TABLET PO SCH ×3 (09:09→16:44)
[2017-10-13] MEDS: PANTOPRAZOLE 40 MG TABLET.DR PO SCH (09:09)
[2017-10-13] MEDS: BACITRACIN/POLYMYXIN B 15 GM TUBE TP SCH (12:17)
[2017-10-13 16:00] VITALS: BP 140/78
[2017-10-13 20:00] VITALS: BP 109/63
[2017-10-13] MEDS: oxyCODONE/APAP (5/325 MG) 1 UDTAB TABLET PO PRN (20:12)
--- NOTE | 2017-10-13 20:13 | NUR ---
APPROACHED N. STATION, C/O LOW BACK PAIN, 8/10 ON SCALE, OXYCODONE 5/325 MG TAB 1 PO GIVEN
[2017-10-13] MEDS: TAMSULOSIN 0.4 MG CAP.SR.24H PO SCH (21:22)
[2017-10-13] MEDS: ATORVASTATIN 40 MG TABLET PO SCH (21:22)
[2017-10-13] MEDS: TEMAZEPAM 7.5 MG CAPSULE PO PRN (23:03)
--- NOTE | 2017-10-13 23:05 | NUR ---
TEMAZEPAM 7.5 MG CAP 1 PO GIVEN FOR SLEEP.
[2017-10-14] MEDS: IBUPROFEN 200 MG TABLET PO PRN (06:36)
--- NOTE | 2017-10-14 06:36 | NUR ---
C/O LOWER BACK PAIN, MOTRIN 600 MG PO GIVEN.
[2017-10-14 07:45] VITALS: BP 110/70
[2017-10-14] MEDS: OXYBUTYNIN CHLORIDE 5 MG TABLET PO SCH ×3 (08:50→16:56)
[2017-10-14] MEDS: OLANZAPINE 2.5 MG TABLET PO SCH ×3 (08:50→22:20)
[2017-10-14] MEDS: CHOLECALCIFEROL 1,000 UNIT TABLET (VIT D3) PO SCH (08:52)
[2017-10-14] MEDS: ASPIRIN EC 81 MG TABLET.DR PO SCH (08:52)
[2017-10-14] MEDS: SERTRALINE HCL 25 MG TABLET PO SCH (08:52)
[2017-10-14] MEDS: PANTOPRAZOLE 40 MG TABLET.DR PO SCH (08:52)
[2017-10-14] MEDS: DOCUSATE SODIUM 100 MG CAPSULE PO SCH ×2 (08:52→16:56)
[2017-10-14] MEDS: LISINOPRIL (20MG) 20 MG TABLET PO SCH (08:52)
[2017-10-14] MEDS: DIVALPROEX SODIUM 250 MG TABLET.DR PO SCH ×3 (08:52→20:36)
[2017-10-14] MEDS: LORATADINE 10 MG TABLET PO SCH (08:52)
[2017-10-14] MEDS: FERROUS SULFATE (325 MG) 325 MG/TAB TABLET PO SCH (08:54)
[2017-10-14] MEDS: BACITRACIN/POLYMYXIN B 15 GM TUBE TP SCH (09:01)
[2017-10-14] MEDS: DILTIAZEM HCL CD 180 MG PO SCH (09:01)
--- NOTE | 2017-10-14 12:05 | NUR ---
SW completed PATIENT INFORMATION AND CHOICE LETTER. Pt is a returning pt from [facility] and stated no preference of providers. Pt was unable to sign.
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
--- NOTE | 2017-10-14 15:37 | NUR ---
HENRIK faxed referral packet to Ren marketing sales consultant of [facility] Address: [address] [place] [address], [place] [address] . Ren confirmed with SW that pt has been accepted to their facility.
[2017-10-14 15:52] VITALS: BP 104/60
[2017-10-14 20:00] VITALS: BP 122/83
[2017-10-14] MEDS: TEMAZEPAM 7.5 MG CAPSULE PO PRN (20:37)
--- NOTE | 2017-10-14 20:37 | NUR ---
TEMAZEPAM 7.5 MG CAP 1 PO GIVEN FOR INSOMNIA.
[2017-10-14] MEDS: TAMSULOSIN 0.4 MG CAP.SR.24H PO SCH (22:20)
[2017-10-14] MEDS: ATORVASTATIN 40 MG TABLET PO SCH (22:20)
[2017-10-14] MEDS: oxyCODONE/APAP (5/325 MG) 1 UDTAB TABLET PO PRN (22:21)
[2017-10-15 08:00] VITALS: BP 115/70
[2017-10-15] MEDS: OXYBUTYNIN CHLORIDE 5 MG TABLET PO SCH ×3 (09:24→16:57)
[2017-10-15] MEDS: DOCUSATE SODIUM 100 MG CAPSULE PO SCH ×2 (09:24→16:57)
[2017-10-15] MEDS: ASPIRIN EC 81 MG TABLET.DR PO SCH (09:24)
[2017-10-15] MEDS: PANTOPRAZOLE 40 MG TABLET.DR PO SCH (09:24)
[2017-10-15] MEDS: OLANZAPINE 2.5 MG TABLET PO SCH ×3 (09:24→22:26)
[2017-10-15] MEDS: CHOLECALCIFEROL 1,000 UNIT TABLET (VIT D3) PO SCH (09:24)
[2017-10-15] MEDS: FERROUS SULFATE (325 MG) 325 MG/TAB TABLET PO SCH (09:25)
[2017-10-15] MEDS: DILTIAZEM HCL CD 180 MG PO SCH (09:25)
[2017-10-15] MEDS: LORATADINE 10 MG TABLET PO SCH (09:25)
[2017-10-15] MEDS: DIVALPROEX SODIUM 250 MG TABLET.DR PO SCH ×2 (09:25→20:32)
[2017-10-15] MEDS: SERTRALINE HCL 25 MG TABLET PO SCH (09:25)
[2017-10-15] MEDS: LISINOPRIL (20MG) 20 MG TABLET PO SCH (09:25)
[2017-10-15] MEDS: BACITRACIN/POLYMYXIN B 15 GM TUBE TP SCH (09:26)
[2017-10-15 16:13] VITALS: BP 101/73
[2017-10-15 20:00] VITALS: BP 106/68
[2017-10-15] MEDS: TEMAZEPAM 7.5 MG CAPSULE PO PRN (20:33)
--- NOTE | 2017-10-15 20:34 | NUR ---
PATIENT UNABLE TO SLEEP, TEMAZEPAM 7.5 MG CAP 1 PO GIVEN.
[2017-10-15] MEDS: TAMSULOSIN 0.4 MG CAP.SR.24H PO SCH (22:22)
[2017-10-15] MEDS: ATORVASTATIN 40 MG TABLET PO SCH (22:22)
[2017-10-16] MEDS: CHOLECALCIFEROL 1,000 UNIT TABLET (VIT D3) PO SCH (08:13)
[2017-10-16] MEDS: DIVALPROEX SODIUM 250 MG TABLET.DR PO SCH ×2 (08:13→21:14)
[2017-10-16] MEDS: ASPIRIN EC 81 MG TABLET.DR PO SCH (08:13)
[2017-10-16] MEDS: FERROUS SULFATE (325 MG) 325 MG/TAB TABLET PO SCH (08:13)
[2017-10-16] MEDS: DOCUSATE SODIUM 100 MG CAPSULE PO SCH ×2 (08:13→16:15)
[2017-10-16] MEDS: LORATADINE 10 MG TABLET PO SCH (08:14)
[2017-10-16] MEDS: DILTIAZEM HCL CD 180 MG PO SCH (08:14)
[2017-10-16] MEDS: OLANZAPINE 2.5 MG TABLET PO SCH ×3 (08:14→21:15)
[2017-10-16] MEDS: PANTOPRAZOLE 40 MG TABLET.DR PO SCH (08:14)
[2017-10-16] MEDS: LISINOPRIL (20MG) 20 MG TABLET PO SCH (08:14)
[2017-10-16] MEDS: SERTRALINE HCL 25 MG TABLET PO SCH (08:14)
[2017-10-16] MEDS: OXYBUTYNIN CHLORIDE 5 MG TABLET PO SCH ×3 (08:14→16:15)
[2017-10-16] MEDS: BACITRACIN/POLYMYXIN B 15 GM TUBE TP SCH (08:15)
[2017-10-16 08:36] VITALS: BP 117/69
[2017-10-16 16:23] VITALS: BP 105/62
--- NOTE | 2017-10-16 19:30 | NUR ---
RECEIVED PATIENT UP IN CHAIR IN DINING ROOM. AO X 2, ABLE TO MAKE NEEDS KNOWN. NO ACUTE DISTRESS NOTED. DENIES ANY PAIN AT THIS TIME. CALM AND COOPERATIVE. NO SI/HI. SAFETY REMINDERS GIVEN. WILL CONTINUE TO MONITOR.
[2017-10-16 20:00] VITALS: BP 128/80
[2017-10-16 20:06] VITALS: BP 128/80
[2017-10-16] MEDS: TAMSULOSIN 0.4 MG CAP.SR.24H PO SCH (21:14)
[2017-10-16] MEDS: ATORVASTATIN 40 MG TABLET PO SCH (21:15)
--- NOTE | 2017-10-17 06:09 | NUR ---
PATIENT ASLEEP, EASILY AROUSABLE. RESPIRATIONS EVEN. NO SIGNS OF PAIN NOTED. DUE MEDS GIVEN WITH NO ASE NOTED. NEEDS ATTENDED. SAFETY PRECAUTIONS AND COMFORT MEASURES IN PLACE. WILL GIVE REPORT TO DAY SHIFT FOR CONTINUITY OF CARE.
[2017-10-17 08:00] VITALS: BP 108/62
[2017-10-17] MEDS: DIVALPROEX SODIUM 250 MG TABLET.DR PO SCH ×2 (08:42→21:33)
[2017-10-17] MEDS: OXYBUTYNIN CHLORIDE 5 MG TABLET PO SCH ×3 (08:43→16:10)
[2017-10-17] MEDS: SERTRALINE HCL 25 MG TABLET PO SCH (08:43)
[2017-10-17] MEDS: DOCUSATE SODIUM 100 MG CAPSULE PO SCH ×2 (08:43→16:10)
[2017-10-17] MEDS: DILTIAZEM HCL CD 180 MG PO SCH (08:43)
[2017-10-17] MEDS: PANTOPRAZOLE 40 MG TABLET.DR PO SCH (08:43)
[2017-10-17] MEDS: ASPIRIN EC 81 MG TABLET.DR PO SCH (08:43)
[2017-10-17] MEDS: OLANZAPINE 2.5 MG TABLET PO SCH ×3 (08:43→21:33)
[2017-10-17] MEDS: LORATADINE 10 MG TABLET PO SCH (08:43)
[2017-10-17] MEDS: FERROUS SULFATE (325 MG) 325 MG/TAB TABLET PO SCH (08:43)
[2017-10-17] MEDS: CHOLECALCIFEROL 1,000 UNIT TABLET (VIT D3) PO SCH (08:44)
[2017-10-17] MEDS: LISINOPRIL (20MG) 20 MG TABLET PO SCH (08:44)
[2017-10-17] MEDS: BACITRACIN/POLYMYXIN B 15 GM TUBE TP SCH (08:44)
[2017-10-17 16:00] VITALS: BP 135/78
[2017-10-17 19:37] VITALS: BP 126/72
[2017-10-17] MEDS: TAMSULOSIN 0.4 MG CAP.SR.24H PO SCH (21:33)
[2017-10-17] MEDS: ATORVASTATIN 40 MG TABLET PO SCH (21:34)
[2017-10-17] MEDS: IBUPROFEN 200 MG TABLET PO PRN (22:18)
[2017-10-18] MEDS: oxyCODONE/APAP (5/325 MG) 1 UDTAB TABLET PO PRN (04:04)
--- NOTE | 2017-10-18 04:04 | NUR ---
GPS RN NOTES: PATIENT C/O LOWER BACK PAIN ON A PAIN SCALE OF 9/10 AND REQUESTED FOR PAIN MED. ADMINISTERED PERCOCET 5/325MG PO ORDERED. WILL CONTINUE TO MONITOR AND ASSESS FOR PAIN.
[2017-10-18 08:00] VITALS: BP 102/70
[2017-10-18] MEDS: SERTRALINE HCL 25 MG TABLET PO SCH (08:38)
[2017-10-18] MEDS: PANTOPRAZOLE 40 MG TABLET.DR PO SCH (08:38)
[2017-10-18] MEDS: OXYBUTYNIN CHLORIDE 5 MG TABLET PO SCH ×3 (08:38→17:05)
[2017-10-18] MEDS: OLANZAPINE 2.5 MG TABLET PO SCH ×3 (08:38→21:07)
[2017-10-18] MEDS: FERROUS SULFATE (325 MG) 325 MG/TAB TABLET PO SCH (08:38)
[2017-10-18] MEDS: DOCUSATE SODIUM 100 MG CAPSULE PO SCH ×2 (08:38→17:05)
[2017-10-18] MEDS: DIVALPROEX SODIUM 250 MG TABLET.DR PO SCH ×2 (08:38→21:07)
[2017-10-18] MEDS: CHOLECALCIFEROL 1,000 UNIT TABLET (VIT D3) PO SCH (08:38)
[2017-10-18] MEDS: DILTIAZEM HCL CD 180 MG PO SCH (08:39)
[2017-10-18] MEDS: LISINOPRIL (20MG) 20 MG TABLET PO SCH (08:39)
[2017-10-18] MEDS: LORATADINE 10 MG TABLET PO SCH (08:39)
[2017-10-18] MEDS: ASPIRIN EC 81 MG TABLET.DR PO SCH (08:39)
[2017-10-18] MEDS: BACITRACIN/POLYMYXIN B 15 GM TUBE TP SCH (08:40)
[2017-10-18 16:00] VITALS: BP 131/87
[2017-10-18 20:00] VITALS: BP 110/80
[2017-10-18] MEDS: TAMSULOSIN 0.4 MG CAP.SR.24H PO SCH (21:06)
[2017-10-18] MEDS: ATORVASTATIN 40 MG TABLET PO SCH (21:06)
[2017-10-18] MEDS: TEMAZEPAM 7.5 MG CAPSULE PO PRN (21:26)
[2017-10-19] MEDS: PANTOPRAZOLE 40 MG TABLET.DR PO SCH (07:30)
[2017-10-19 08:00] VITALS: BP 104/69
[2017-10-19 09:00] VITALS: BP 160/90
[2017-10-19] MEDS: DILTIAZEM HCL CD 180 MG PO SCH (09:00)
[2017-10-19] MEDS: LISINOPRIL (20MG) 20 MG TABLET PO SCH (09:00)
[2017-10-19] MEDS: CHOLECALCIFEROL 1,000 UNIT TABLET (VIT D3) PO SCH (09:11)
[2017-10-19] MEDS: FERROUS SULFATE (325 MG) 325 MG/TAB TABLET PO SCH (09:11)
[2017-10-19] MEDS: DOCUSATE SODIUM 100 MG CAPSULE PO SCH (09:11)
[2017-10-19] MEDS: ASPIRIN EC 81 MG TABLET.DR PO SCH (09:11)
[2017-10-19] MEDS: OLANZAPINE 2.5 MG TABLET PO SCH (09:12)
[2017-10-19] MEDS: OXYBUTYNIN CHLORIDE 5 MG TABLET PO SCH ×2 (09:12→13:00)
[2017-10-19] MEDS: SERTRALINE HCL 25 MG TABLET PO SCH (09:12)
[2017-10-19] MEDS: DIVALPROEX SODIUM 250 MG TABLET.DR PO SCH (09:12)
[2017-10-19] MEDS: BACITRACIN/POLYMYXIN B 15 GM TUBE TP SCH (09:19)
[2017-10-19] MEDS: LORATADINE 10 MG TABLET PO SCH (09:27)
--- NOTE | 2017-10-19 11:29 | NUR ---
DISCHARGE NOTE: Pt being discharged at 11:30am to [facility][1] Address: [address] [place] [address] via [facility] trip #[id number]. Pts mood and affect was calm, cooperative, and confused. Pt denied suicidal/homicidal ideations and appeared to be experiencing visual/auditory hallucinations. Pts Bess has been notified [phone] and was agreeable to discharge plan. Pt refused substance abuse referrals for his marijuana use. However, patient was provided with a brief substance abuse intervention and referred to [facility] [address] [place] [address] Tel. , [facility] [address] [place] [address] , and [facility] [address] [place], [place] [id number] . Pt will be under the medical care of Production Manager: Dr. Raúl Hansen [address], [place] [address] [phone] and Psychiatrist: Dr. Daysi Paez [address], [place], [place] [phone]. Addendum: 10/19/17 at 1147 by TAMMY CHESTER The multidisciplinary exitcare form was done, printed, signed, and given to the patient.
--- NOTE | 2017-10-19 12:30 | NUR ---
RN NOTE :PATIENT REFUSED DISCHARGE PICTURES.
--- NOTE | 2017-10-19 13:00 | NUR ---
THERAPY ASSISTANT NOTE : PATIENT ALERT ,VERBALLY RESPONSIVE ,VS STABLE ,DENIES SI/HI/AVH.NO C/O PAIN ,NO S/STRESS NOTED ,NO C/O PAIN.ALL DISCHARGE INSTRUCTION GIVEN TO PATIENT ABLE TO VERBALIZE UNDERSTANDING ,ALL BELONGINGS RETURNED TO PATIENT, AND ANURADHA VALDOVINOS NOTIFIED OF DISCHARGE WITH DISCHARGE ORDERS ALL ORDERS CARIED OUT. ,PATIENT DENIES SUICIDAL IDEATION ,HOMICIDAL IDEATION ,DENIES AUDITORY ,VISUAL HALLUCINATION ,REPORT GIVEN TO DANITA RN IN [facility] .PATIENT DISCHARGE AT 1300 WITH AMBULANCE
== END 2017-10-19 13:00 | DRG 885 ==
LOC: ER 17:39 → GPS 19:42
PROVIDERS: ADMIT Psychiatry & Neurology Psychiatry; ATTEND Psychiatry & Neurology Psychiatry
DX: F29 Unspecified psychosis not due to a substance or known physiological condition (principal); D68.59 Other primary thrombophilia; F03.91 Unspecified dementia, unspecified severity, with behavioral disturbance; I48.91 Unspecified atrial fibrillation; W18.30XA Fall on same level, unspecified, initial encounter; Y92.129 Unspecified place in nursing home as the place of occurrence of the external cause; Z85.51 Personal history of malignant neoplasm of bladder; Z79.899 Other long term (current) drug therapy; Z79.82 Long term (current) use of aspirin; Z88.8 Allergy status to other drugs, medicaments and biological substances; E78.5 Hyperlipidemia, unspecified; I10 Essential (primary) hypertension; K21.9 Gastro-esophageal reflux disease without esophagitis; N40.0 Benign prostatic hyperplasia without lower urinary tract symptoms; F10.21 Alcohol dependence, in remission; S00.81XA Abrasion of other part of head, initial encounter; S61.411A Laceration without foreign body of right hand, initial encounter; G47.00 Insomnia, unspecified
CPT/HCPCS: 36415; 70450-TC; 71045-TC; 80048-TC; 80061-TC; 80076-TC; 80164-TC; 82565-TC; 84484-TC; 85025-TC; 85730-TC; 87081-TC; A4606; G0480; Z7610